=== PATIENT | male | born 1960 | race Caucasian/White ===

== ENCOUNTER 2017-07-24 09:25 | Emergency (ER) | payer OTHER ==
[~2017-07-24] VITALS: Ht 182.9 cm; Wt 95.0 kg
[~2017-07-24 09:25] MED LIST: Z.0.NO CURRENT MEDS
[2017-07-24] MEDS ORDERED: IOHEXOL 350 MG/ML 10 ML VIAL (for RAD DIAG) IVCONTRAST ONE (09:26)
[2017-07-24 09:27] VITALS: BP 176/88; PULSE 70; RESP 13; TEMP 98.6; O2SAT 100
[2017-07-24 09:32] VITALS: BP 129/74; PULSE 78; RESP 18; TEMP 98; O2SAT 96
[2017-07-24] MEDS ORDERED: SODIUM CHLOR 0.9% 1000 ML INJ 1,000 ML IV SCH (09:37)
[2017-07-24] MEDS ORDERED: SODIUM CHLORIDE 0.9% FLUSH 10 ML FLUSH IVF PRN (09:45)
[2017-07-24] MEDS ORDERED: ONDANSETRON HCL 4 MG/2 ML VIAL IVP ONE (09:45)
[2017-07-24] MEDS ORDERED: MORPHINE SULFATE 4 MG/ML INJ IV ONE (09:45)
[2017-07-24 09:56] LABS: AUTOMATED NEUTROPHIL # 4.5 TH/MM3 (1.8-7.7); BASOPHIL # 0.1 TH/MM3 (0-0.2); BASOPHIL % 0.9 % (0.0-2.0); EOSINOPHIL # 0.2 TH/MM3 (0-0.4); HEMATOCRIT 40.7 % (39.0-51.0); HEMO FLAGS DIFF FINAL; LYMPH % 37.3 % (9.0-44.0); LYMPHOCYTE # 3.2 TH/MM3 (1.0-4.8); MEAN CELL VOLUME 91.4 FL (80.0-100.0); MEAN CORPUSCULAR HEMOGLOBIN 31.4 PG (27.0-34.0); MEAN CORPUSCULAR HGB CONC 34.3 % (32.0-36.0); MONO % 8.2 % (0.0-8.0); NEUT % 51.6 % (16.0-70.0); PLATELET COUNT 315 TH/MM3 (150-450); RED BLOOD COUNT 4.46 MIL/MM3 (4.50-5.90); RED CELL DISTRIBUTION WIDTH 13.5 % (11.6-17.2); WHITE BLOOD COUNT 8.7 TH/MM3 (4.0-11.0)
[2017-07-24 10:11] LABS: INTERNATIONAL NORMALIZED RATIO 0.9 RATIO
[2017-07-24 10:13] LABS: BICARBONATE 23.2 MEQ/L (21.0-32.0); POTASSIUM 4.2 MEQ/L (3.5-5.1)
--- NOTE | 2017-07-24 10:25 | RADRPT ---
EXAM DATE/TIME: 07/24/2017 10:10 [facility] COMPARISON: No previous studies available for comparison. INDICATIONS : Limited right shoulder, pain scapula and shoulder joint. MEDICAL HISTORY : None. SURGICAL HISTORY : None. ENCOUNTER: Initial ACUITY: 1 day PAIN SCORE: 10/10 LOCATION: Right shoulder FINDINGS: Two view examination of the right shoulder demonstrates no evidence of fracture or dislocation. The glenohumeral and acromioclavicular joints are maintained. Bony mineralization is normal. CONCLUSION: Unremarkable limited examination of the right shoulder. Joseph Mccollum MD on July 24, 2017 at 10:23 Board Certified Radiologist. This report was verified electronically.
--- NOTE | 2017-07-24 10:28 | RADRPT ---
EXAM DATE/TIME: 07/24/2017 10:03 [facility] COMPARISON: No previous studies available for comparison. INDICATIONS : Fell from tree, landing on back, pain right scapula and shoulder. MEDICAL HISTORY : None. SURGICAL HISTORY : None. ENCOUNTER: Initial ACUITY: 1 day PAIN SCORE: 10/10 LOCATION: Right chest FINDINGS: The heart is normal in size. The lungs are clear. The visualized bony structures are grossly intact. CONCLUSION: 1. No acute cardiopulmonary findings. Ken Phillips MD on July 24, 2017 at 10:26 Board Certified Radiologist. This report was verified electronically.
--- NOTE | 2017-07-24 10:28 | PD ---
HPI Chief Complaint: Fall Time Seen by Provider: 09:37 Travel History International Travel<30 days: No Contact w/Intl Traveler<30days: No Traveled to known affect area: No History of Present Illness HPI 57-year-old male with history of no significant past medical issues, presents to the ER today after he fell from the second rung from the top on a 10 foot ladder. He states that he was trying to cut down a tree and a tree fell on the ladder and knocked the ladder down. He fell onto his right side and is complaining of right rib pains. He denies any trouble breathing. He denies any head injury or loss of consciousness. He denies any other injuries and actually got himself up and had walked. Modifying Factors: None Associated Signs & Symptoms: Fall from ladder, right chest wall pain Risk Factors: None PFSH Past Medical History Medical History: Denies Significant Hx Past Surgical History Tonsillectomy: Yes Social History Alcohol Use: No Tobacco Use: No Substance Use: No Allergies-Medications (Allergen,Severity, Reaction): Coded Allergies: No Known Allergies (Verified , 06/20/09) Reported Meds & Prescriptions Reported Meds & Active Scripts Active No Active Prescriptions or Reported Medications Review of Systems Except as stated in HPI: all other systems reviewed are Neg Physical Exam Narrative GENERAL: Well-developed middle age white male patient currently in moderate distress. Awake and oriented 3. C-collar placed in the ER. SKIN: Focused skin assessment warm/diaphoretic. HEAD: Atraumatic. Normocephalic. EYES: Pupils equal and round. No scleral icterus. No injection or drainage. ENT: No nasal bleeding or discharge. Mucous membranes pink and moist. NECK: Trachea midline. No JVD. In c-collar. CARDIOVASCULAR: Regular rate and rhythm. No murmur appreciated. Pulses are present and equal bilaterally. RESPIRATORY: No accessory muscle use. Clear to auscultation. Breath sounds equal bilaterally. CHEST: Right lateral rib tenderness without deformity or crepitance. No retractions or use of accessory muscles. GASTROINTESTINAL: Abdomen soft, non-tender, nondistended. Hepatic and splenic margins not palpable. Pelvis: Stable and nontender to palpation. EXTREMITIES: No clubbing, cyanosis, or edema. No joint tenderness, effusion, or edema noted. Tender to palpation of the right posterior shoulder with notable edema over the top of the right shoulder. Decreased range of motion secondary to pain. MUSCULOSKELETAL: No obvious deformities. No clubbing. No cyanosis. No edema. NEUROLOGICAL: Awake and alert. No obvious cranial nerve deficits. Motor grossly within normal limits. Normal speech. PSYCHIATRIC: Appropriate mood and affect; insight and judgment normal. Data Data Last Documented VS Vital Signs Date Time Temp Pulse Resp B/P (MAP) Pulse Ox O2 Delivery O2 Flow Rate FiO2 07/24/17 11:26 76 14 141/80 (100) 97 Room Air 07/24/17 09:32 98.0 Orders Orders Basic Metabolic Panel (Bmp) (07/24/17 09:37) Complete Blood Count With Diff (07/24/17 09:37) Prothrombin Time / Inr (Pt) (07/24/17 09:37) Act Partial Throm Time (Ptt) (07/24/17 09:37) Type And Screen (07/24/17 09:37) Chest, Single Ap (07/24/17 09:37) Ct Brain W/O Iv Contrast(Rout) (07/24/17 09:37) Ct Cerv Spine W/O Contrast (07/24/17 09:37) Ct Abd/Pel W Iv Contrast(Rout) (07/24/17 09:37) Ct Thorax/ Chest W Iv Contrast (07/24/17 09:37) Ct Thor Spine W/O Contrast (07/24/17 09:37) Ct Lumb Spine W/O Contrast (07/24/17 09:37) Iv Access Insert/Monitor (07/24/17 09:37) Ecg Monitoring (07/24/17 09:37) Oximetry (07/24/17 09:37) Oxygen Administration (07/24/17 09:37) Morphine Inj (Morphine Inj) (07/24/17 09:45) Ondansetron Inj (Zofran Inj) (07/24/17 09:45) Sodium Chlor 0.9% 1000 Ml Inj (Ns 1000 M (07/24/17 09:37) Sodium Chloride 0.9% Flush (Ns Flush) (07/24/17 09:45) Shoulder, Limited(2vws) (07/24/17 09:59) Iohexol 350 Inj (Omnipaque 350 Inj) (07/24/17 09:26) Labs Laboratory Tests Test 07/24/17 09:41 White Blood Count 8.7 TH/MM3 Red Blood Count 4.46 MIL/MM3 Hemoglobin 14.0 GM/DL Hematocrit 40.7 % Mean Corpuscular Volume 91.4 FL Mean Corpuscular Hemoglobin 31.4 PG Mean Corpuscular Hemoglobin Concent 34.3 % Red Cell Distribution Width 13.5 % Platelet Count 315 TH/MM3 Mean Platelet Volume 8.4 FL Neutrophils (%) (Auto) 51.6 % Lymphocytes (%) (Auto) 37.3 % Monocytes (%) (Auto) 8.2 % Eosinophils (%) (Auto) 2.0 % Basophils (%) (Auto) 0.9 % Neutrophils # (Auto) 4.5 TH/MM3 Lymphocytes # (Auto) 3.2 TH/MM3 Monocytes # (Auto) 0.7 TH/MM3 Eosinophils # (Auto) 0.2 TH/MM3 Basophils # (Auto) 0.1 TH/MM3 CBC Comment DIFF FINAL Differential Comment Prothrombin Time 10.0 SEC Prothromb Time International Ratio 0.9 RATIO Activated Partial Thromboplast Time 19.0 SEC Blood Urea Nitrogen 18 MG/DL Creatinine 1.43 MG/DL Random Glucose 105 MG/DL Calcium Level 8.7 MG/DL Sodium Level 139 MEQ/L Potassium Level 4.2 MEQ/L Chloride Level 107 MEQ/L Carbon Dioxide Level 23.2 MEQ/L Anion Gap 9 MEQ/L Estimat Glomerular Filtration Rate 51 ML/MIN [facility] Medical Decision Making Medical Screen Exam Complete: Yes Emergency Medical Condition: Yes Medical Record Reviewed: Yes Interpretation(s) Laboratory Tests Test 07/24/17 09:41 Red Blood Count 4.46 MIL/MM3 (4.50-5.90) Monocytes (%) (Auto) 8.2 % (0.0-8.0) Activated Partial Thromboplast Time 19.0 SEC (24.3-30.1) Creatinine 1.43 MG/DL (0.60-1.30) Estimat Glomerular Filtration Rate 51 ML/MIN (>89) Last 24 hours Impressions Shoulder X-Ray 07/24/17 0959 Signed Impressions: Service Date/Time: Monday, July 24, 2017 10:10 - CONCLUSION: Unremarkable limited examination of the right shoulder. Joseph Mccollum MD Thoracic Spine CT 07/24/17 0937 Signed Impressions: Service Date/Time: Monday, July 24, 2017 10:51 - CONCLUSION: No acute bony injury Joseph Mccollum MD Lumbar Spine CT [id number]/[id number] Signed Impressions: Service Date/Time: Monday, July 24, 2017 10:51 - CONCLUSION: No acute bony injury. Joseph Mccollum MD Head CT [id number]/[id number] Signed Impressions: Service Date/Time: Monday, July 24, 2017 10:45 - CONCLUSION: No acute intracranial abnormality. Reinaldo Pringle MD Chest X-Ray [id number]/24/17936 Signed Impressions: Service Date/Time: Monday, July 24, 2017 10:03 - CONCLUSION: 1. No acute cardiopulmonary findings. Ken Phillips MD Chest CT 07/24/17936 Signed Impressions: Service Date/Time: Monday, July 24, 2017 10:51 - CONCLUSION: 1. No acute thoracic injury. 2. Borderline prominent mediastinal and hilar adenopathy. Long-term followup recommended. Reinaldo Pringle MD Cervical Spine CT 07/24/17936 Signed Impressions: Service Date/Time: Monday, July 24, 2017 10:45 - CONCLUSION: 1. No fracture or subluxation. Reinaldo Pringle MD Abdomen/Pelvis CT 07/24/[id number] Signed Impressions: Service Date/Time: Monday, July 24, 2017 10:51 - CONCLUSION: 1. No acute abdominal visceral injury. 2. Bilateral renal low densities likely cysts. Reinaldo Pringle MD Differential Diagnosis Fall from ladder, right chest wall injury: Fractures versus pneumothorax versus head injury versus other fractures Narrative Course X-rays and CAT scans did not show any signs of acute injuries. Patient is placed in a right shoulder sling. Vital signs are stable in the ER. At this point, my plan would be to release him with follow-up to primary care doctor. Return for worsening in symptoms as needed. The plan has discussed with him and he states understanding. It appears that he has a shoulder contusion and rib contusions. Diagnosis Primary Impression: Shoulder contusion Additional Impression: Chest wall contusion Med/Other Pt SpecificInfo: Prescription(s) given Scripts Hydrocodone-Acetaminophen (Lortab) 5-325 Mg Tab 1-2 TAB PO Q6H Y for PAIN, #15 TAB 0 Refills Prov: Nazanin Swann MD 07/24/17 Disposition: 01 DISCHARGE HOME Condition: Stable Nazanin Swann MD Jul 24, 2017 10:28
--- NOTE | 2017-07-24 11:23 | RADRPT ---
EXAM DATE/TIME: 07/24/2017 10:45 [facility] COMPARISON: No previous studies available for comparison. INDICATIONS : Fall from ladder. Right-sided body pain. RADIATION DOSE: 58.90 CTDIvol (mGy) MEDICAL HISTORY : None SURGICAL HISTORY : Tonsillectomy. ENCOUNTER: Initial ACUITY: 1 day PAIN SCALE: 5/10 LOCATION: Right TECHNIQUE: Multiple contiguous axial images were obtained of the head. Using automated exposure control and adj ustment of the mA and/or kV according to patient size, radiation dose was kept as low as reasonably a chievable to obtain optimal diagnostic quality images. DICOM format image data is available electro nically for review and comparison. FINDINGS: CEREBRUM: The ventricles are normal for age. No evidence of midline shift, mass lesion, hemorrhage or acute in farction. No extra-axial fluid collections are seen. POSTERIOR FOSSA: The cerebellum and brainstem are intact. The 4th ventricle is midline. The cerebellopontine angle i s unremarkable. EXTRACRANIAL: The visualized portion of the orbits is intact. SKULL: The calvaria is intact. No evidence of skull fracture. CONCLUSION: No acute intracranial abnormality. Reinaldo Pringle MD on July 24, 2017 at 11:19 Board Certified Radiologist. This report was verified electronically.
[2017-07-24 11:26] VITALS: BP 141/80; PULSE 76; RESP 14; O2SAT 97
--- NOTE | 2017-07-24 11:30 | RADRPT ---
EXAM DATE/TIME: 07/24/2017 10:51 [facility] COMPARISON: No previous studies available for comparison. INDICATIONS : Fall from ladder. Right-sided body pain. IV CONTRAST: 88 cc Omnipaque 350 (iohexol) IV ; Cumulative dose for multiple exams. ORAL CONTRAST: No oral contrast ingested. RADIATION DOSE: 23.33 CTDIvol (mGy) ; Combined studies MEDICAL HISTORY : None SURGICAL HISTORY : Tonsillectomy. ENCOUNTER: Initial ACUITY: 1 day PAIN SCALE: 5/10 LOCATION: Right TECHNIQUE: Volumetric scanning of the abdomen and pelvis was performed. Using automated exposure control and ad justment of the mA and/or kV according to patient size, radiation dose was kept as low as reasonably achievable to obtain optimal diagnostic quality images. DICOM format image data is available electro nically for review and comparison. FINDINGS: LOWER LUNGS: The visualized lower lungs are clear. LIVER: Homogeneous density without lesion. There is no dilation of the biliary tree. No calcified gallston es. SPLEEN: Normal size without lesion. PANCREAS: Within normal limits. KIDNEYS: Normal in size and shape. There is no mass, stone or hydronephrosis. Bilateral renal densities. ADRENAL GLANDS: Within normal limits. VASCULAR: There is no aortic aneurysm. BOWEL/MESENTERY: The stomach, small bowel, and colon demonstrate no acute abnormality. There is no free intraperitone al air or fluid. ABDOMINAL WALL: Within normal limits. RETROPERITONEUM: There is no lymphadenopathy. BLADDER: No wall thickening or mass. REPRODUCTIVE: Within normal limits. INGUINAL: There is no lymphadenopathy or hernia. MUSCULOSKELETAL: Within normal limits for patient age. CONCLUSION: 1. No acute abdominal visceral injury. 2. Bilateral renal low densities likely cysts. Reinaldo Pringle MD on July 24, 2017 at 11:26 Board Certified Radiologist. This report was verified electronically.
--- NOTE | 2017-07-24 11:31 | RADRPT ---
EXAM DATE/TIME: 07/24/2017 10:45 [facility] COMPARISON: No previous studies available for comparison. INDICATIONS : Fall from ladder. Right-sided body pain. RADIATION DOSE: 21.48 CTDIvol (mGy) MEDICAL HISTORY : None SURGICAL HISTORY : Tonsillectomy. ENCOUNTER: Initial ACUITY: 1 day PAIN SCALE: 5/10 LOCATION: Right TECHNIQUE: Volumetric scanning of the cervical spine was performed. Multiplanar reconstructions in the sagittal, coronal and oblique axial planes were performed. Using automated exposure control and adjustment o f the mA and/or kV according to patient size, radiation dose was kept as low as reasonably achievable to obtain optimal diagnostic quality images. DICOM format image data is available electronically f or review and comparison. FINDINGS: VERTEBRAE: Normal vertebral body height. Diffuse mild degenerative changes. ALIGNMENT: No evidence of subluxation. C2-C3: The bony spinal canal is normal in size. No evidence of disc bulge or herniation. The neural forami na are bilaterally patent. C3-C4: The bony spinal canal is normal in size. No evidence of disc bulge or herniation. The neural forami na are bilaterally patent. C4-C5: The bony spinal canal is normal in size. No evidence of disc bulge or herniation. The neural forami na are bilaterally patent. C5-C6: The bony spinal canal is normal in size. No evidence of disc bulge or herniation. The neural forami na are bilaterally patent. C6-C7: The bony spinal canal is normal in size. No evidence of disc bulge or herniation. The neural forami na are bilaterally patent. C7-T1: The bony spinal canal is normal in size. No evidence of disc bulge or herniation. The neural forami na are bilaterally patent. CONCLUSION: 1. No fracture or subluxation. Reinaldo Pringle MD on July 24, 2017 at 11:29 Board Certified Radiologist. This report was verified electronically.
--- NOTE | 2017-07-24 11:33 | RADRPT ---
EXAM DATE/TIME: 07/24/2017 10:51 [facility] COMPARISON: No previous studies available for comparison. INDICATIONS : Fall from ladder. Right-sided body pain. IV CONTRAST: 88 cc Omnipaque 350 (iohexol) IV ; Cumulative dose for multiple exams. RADIATION DOSE: 23.33 CTDIvol (mGy) ; Combined studies MEDICAL HISTORY : None SURGICAL HISTORY : Tonsillectomy. ENCOUNTER: Initial ACUITY: 1 day PAIN SCALE: 5/10 LOCATION: Right TECHNIQUE: Volumetric scanning of the chest was performed. Using automated exposure control and adjustment of t he mA and/or kV according to patient size, radiation dose was kept as low as reasonably achievable to obtain optimal diagnostic quality images. DICOM format image data is available electronically for review and comparison. Follow-up recommendations for detected pulmonary nodules are based at a minimum on nodule size and pa tient risk factors according to Fleischner Society Guidelines. FINDINGS: LUNGS: There is no consolidation or pneumothorax. No concerning pulmonary nodule is visualized. PLEURA: There is no pleural thickening or pleural effusion. MEDIASTINUM: The heart and great vessels demonstrate no acute abnormality. Borderline prominent mediastinal and hi lar adenopathy. AXILLAE: Within normal limits. No lymphadenopathy. SKELETAL: Within normal limits for patient age. MISCELLANEOUS: The visualized upper abdominal organs demonstrate no acute abnormality. CONCLUSION: 1. No acute thoracic injury. 2. Borderline prominent mediastinal and hilar adenopathy. Long-term followup recommended. Reinaldo Pringle MD on July 24, 2017 at 11:30 Board Certified Radiologist. This report was verified electronically.
--- NOTE | 2017-07-24 11:46 | RADRPT ---
EXAM DATE/TIME: 07/24/2017 10:51 [facility] COMPARISON: CT THORAX W CONTRAST, July 24, 2017, 10:51. INDICATIONS : Fall from ladder. Right-sided body pain. RADIATION DOSE: ; Reconstructed from previous dataset, no dose MEDICAL HISTORY : None SURGICAL HISTORY : Tonsillectomy. ENCOUNTER: Initial ACUITY: 1 day PAIN SCALE: 5/10 LOCATION: Right TECHNIQUE: Volumetric scanning of the thoracic spine was performed. Multiplanar reconstructions in the sagittal, coronal and oblique axial planes were performed. Using automated exposure control a nd adjustment of the mA and/or kV according to patient size, radiation dose was kept as low as reason ably achievable to obtain optimal diagnostic quality images. DICOM format image data is available e lectronically for review and comparison. FINDINGS: The vertebral bodies of the thoracic spine are in normal alignment without evidence of subluxation. Vertebral body height is maintained. No fractures are seen. Mild anterior marginal spurring right si de T8-9 and T9-10 T1-T2: Normal. T2-T3: The thecal sac has a normal diameter. No evidence of disc bulge or protrusion. T3-T4: The thecal sac has a normal diameter. No evidence of disc bulge or protrusion. T4-T5: The thecal sac has a normal diameter. No evidence of disc bulge or protrusion. T5-T6: The thecal sac has a normal diameter. No evidence of disc bulge or protrusion. T6-T7: The thecal sac has a normal diameter. No evidence of disc bulge or protrusion. T7-T8: The thecal sac has a normal diameter. No evidence of disc bulge or protrusion. T8-T9: The thecal sac has a normal diameter. No evidence of disc bulge or protrusion. T9-T10: The thecal sac has a normal diameter. No evidence of disc bulge or protrusion. T10-T11: The thecal sac has a normal diameter. No evidence of disc bulge or protrusion. T11-T12: The thecal sac has a normal diameter. No evidence of disc bulge or protrusion. T12-L1: The thecal sac has a normal diameter. No evidence of disc bulge or protrusion. CONCLUSION: No acute bony injury Joseph Mccollum MD on July 24, 2017 at 11:39 Board Certified Radiologist. This report was verified electronically.
--- NOTE | 2017-07-24 11:58 | RADRPT ---
EXAM DATE/TIME: 07/24/2017 10:51 [facility] COMPARISON: CT ABDOMEN & PELVIS W CONTRAST, July 24, 2017, 10:51. INDICATIONS : Fall from ladder RADIATION DOSE: ; Reconstructed from previous dataset, no dose MEDICAL HISTORY : None SURGICAL HISTORY : Tonsillectomy. ENCOUNTER: Initial ACUITY: 1 day PAIN SCALE: 5/10 LOCATION: Right TECHNIQUE: Volumetric scanning of the lumbar spine was performed. Multiplanar reconstructions in the sagittal, coronal and oblique axial planes were performed. Using automated exposure control and adjustment of the mA and/or kV according to patient size, radiation dose was kept as low as reasonab ly achievable to obtain optimal diagnostic quality images. DICOM format image data is available ginger ctronically for review and comparison. FINDINGS: VERTEBRAE: Normal vertebral body height. Interspersed anterior marginal spurring. ALIGNMENT: No evidence of subluxation. T12-L1: The thecal sac has a normal diameter. No evidence of disc bulge or protrusion. The neural foramina are patent bilaterally. L1-L2: The thecal sac has a normal diameter. No evidence of disc bulge or protrusion. The neural foramina are patent bilaterally. L2-L3: The thecal sac has a normal diameter. No evidence of disc bulge or protrusion. The neural foramina are patent bilaterally. L3-L4: The thecal sac has a normal diameter. No evidence of disc bulge or protrusion. The neural foramina are patent bilaterally. L4-L5: The thecal sac has a normal diameter. No evidence of disc bulge or protrusion. The neural foramina are patent bilaterally. L5-S1: The thecal sac has a normal diameter. No evidence of disc bulge or protrusion. The neural foramina are patent bilaterally. Facet arthritic changes slightly more prominent on the right than t he left. CONCLUSION: No acute bony injury. Joseph Mccollum MD on July 24, 2017 at 11:52 Board Certified Radiologist. This report was verified electronically.
[2017-07-24] MEDS ORDERED: HYDR-3533 PO (12:36)
[2017-07-24] MEDS ORDERED: ACETAMINOPHEN/HYDROcodone 325 MG/5 MG TAB PO ONE (12:45)
--- NOTE | 2017-07-24 16:12 | EKG ---
Date Performed: 07/24/2017 Time Performed: 09:49:00 PTAGE: 57 years EKG: Sinus rhythm POSSIBLE LEFT ATRIAL ENLARGEMENT POSSIBLE RIGHT VENTRICULAR CONDUCTION DELAY BORDERLINE ECG NO PREVIOUS TRACING DOCTOR: Loreta Paulson Interpretating Date/Time 07/24/2017 16:12:08
== END 2017-07-24 13:10 | disposition home or self-care (01) ==
LOC: NEPE 09:25
DX: S40.019A Contusion of unspecified shoulder, initial encounter (principal); S20.219A Contusion of unspecified front wall of thorax, initial encounter; R94.31 Abnormal electrocardiogram [ECG] [EKG]; W11.XXXA Fall on and from ladder, initial encounter; Y93.H2 Activity, gardening and landscaping; Y92.007 Garden or yard of unspecified non-institutional (private) residence as the place of occurrence of the external cause
CPT/HCPCS: 70450; 71010; 71260; 72125; 72128; 72131; 73030; 74177; 80048; 85025; 85610; 85730; 86850; 86900; 86901; 93005; 96374; 96375; 99285; J2270; J2405; J7030; Q9967

== ENCOUNTER 2017-07-28 08:00 | Emergency (ER) | payer SELFPAY ==
[~2017-07-28] VITALS: Ht 182.9 cm; Wt 98.0 kg
[~2017-07-28 08:00] MED LIST changes: +HYDR-3533 PO; -Z.0.NO CURRENT MEDS
[2017-07-28 08:01] VITALS: BP 176/91; PULSE 84; RESP 15; TEMP 98.1; O2SAT 99
--- NOTE | 2017-07-28 08:31 | PD ---
HPI Chief Complaint: Pain: Acute or Chronic Time Seen by Provider: 08:07 Travel History International Travel<30 days: No Contact w/Intl Traveler<30days: No Traveled to known affect area: No History of Present Illness HPI 57-year-old male presents the emergency department status post fall from ladder 5 days ago. Patient fully work up at that time including x-rays and CT scans. He comes in today concerned that he has ongoing pain and wanted to get it rechecked. Patient denies numbness or tingling. He has decreased range of motion secondary to pain. Patient states he reaggravated throwing a ball for his dog and he was concerned about it. Patient's current pain is about a 6 out of 10. It is worse with certain movements. He has no known drug allergies PFSH Past Medical History ?: Not Past Surgical History Tonsillectomy: Yes Social History Alcohol Use: No Tobacco Use: No Substance Use: No Allergies-Medications (Allergen,Severity, Reaction): Coded Allergies: No Known Allergies (Verified , 06/20/09) Reported Meds & Prescriptions Reported Meds & Active Scripts Active Lortab (Hydrocodone-Acetaminophen) 5-325 Mg Tab 1-2 Tab PO Q6H PRN Review of Systems Except as stated in HPI: all other systems reviewed are Neg General / Constitutional: No: Fever Eyes: No: Visual changes HENT: No: Headaches Cardiovascular: No: Chest Pain or Discomfort Respiratory: No: Shortness of Breath Gastrointestinal: No: Abdominal Pain Genitourinary: No: Dysuria Musculoskeletal: Positive: Myalgias, Limited ROM, Pain (see history present illness.) Skin: No Rash Neurologic: No: Weakness Psychiatric: No: Depression Endocrine: No: Polydipsia Hematologic/Lymphatic: No: Easy Bruising Physical Exam Narrative GENERAL: Patient appears in mild distress. SKIN: Warm and dry. Normal color. Normal turgor. Patient has some old bruising on the anterior right shoulder consistent with his injury. HEAD: Atraumatic. Normocephalic. EYES: Pupils equal and round. No scleral icterus. No injection or drainage. ENT: No nasal bleeding or discharge. Mucous membranes pink and moist. NECK: Trachea midline. No JVD. CARDIOVASCULAR: Regular rate and rhythm. RESPIRATORY: No accessory muscle use. Clear to auscultation. Breath sounds equal bilaterally. GASTROINTESTINAL: Abdomen soft, non-tender, nondistended. Hepatic and splenic margins not palpable. MUSCULOSKELETAL: Extremities without clubbing, cyanosis, or edema. No obvious deformities. Patient's range of motion the right shoulder is intact but limited secondary to pain. I do not detect any obvious rotator cuff deficiencies suggestive of a complete rotator cuff tear. Patient is tender at the right AC joint. Patient has normal day trader strength and fine motor skills in the distal right upper extremity. Flexion and extension of the arm is somewhat limited again secondary to pain. NEUROLOGICAL: Awake and alert. No obvious cranial nerve deficits. Motor grossly within normal limits. Five out of 5 muscle strength in the arms and legs. Normal speech. PSYCHIATRIC: Appropriate mood and affect; insight and judgment normal. Data Data Last Documented VS Vital Signs Date Time Temp Pulse Resp B/P (MAP) Pulse Ox O2 Delivery O2 Flow Rate FiO2 07/28/17 08:01 98.1 84 15 176/91 (119) 99 MDM Medical Decision Making Medical Screen Exam Complete: Yes Emergency Medical Condition: No Differential Diagnosis Fall. Shoulder contusion. Possible before meals separation. Possible rotator cuff Narrative Course Discussed the patients symptoms and prognosis Recommend ibuprofen and Tylenol heat and ice and gentle stretching. A medical screening exam was performed: At the time of evaluation the presenting medical condition was determined not to be of an emergent nature. The patient was given the option of receiving additional care, but declined. Patient was given options for additional community resources from which to obtain care. The Patient Has Been advised to seek medical attention for their presenting complaint. The patient has been advised to return to the ER at any time if an emergent condition develops. Condition: Stable Jp Sebastian Jul 28, 2017 08:31
== END 2017-07-28 09:03 | disposition left against medical advice (07) ==
LOC: NEPK 08:00
DX: Z00.00 Encounter for general adult medical examination without abnormal findings (principal)
CPT/HCPCS: 99281